=== PATIENT | female | born 1945 | race Caucasian/White ===

== ENCOUNTER → 2025-06-17 | Day surgery (SDC) | payer MEDICARE ==
[~2025-06-17] MED LIST: ALENDRONATE SOD70 MG PO; DOXAZOSIN MESYLA2 MG PO; EPHEDRINE SULFATE INJ 50 MG/ML VIAL ONE; ESTRADIOL1 MG PO; EYE LUBRICANT OPTH OINT 3.5GM TUBE OP ONE; FENTANYL CITRATE/PF 100MCG/2 ML INJ ONE; FINASTERIDE5 MG PO; HYDROCHLOROTHIA25 MG PO; KETAMINE HCL INJ 50 MG/ML 10 ML VIAL ONE; LIDOCAINE HCL 2% LOCAL INJ 5 ML SDV VIAL INJ ONE; PHENYLEPHRINE HCL 1% 10 MG/ML VIAL ONE; PROPOFOL IV EMULSION 10 MG/ML 20 ML VIAL ONE; PROPOFOL IV EMULSION 50 ML IV ONE; SIMVASTATIN20 MG PO; SODIUM CHLORIDE 0.9% INJ 10 ML VIAL ONE; SYNTHROID50 MCG PO; TRAZODONE HCL100 MG PO; VESICARE5 MG PO
[2025-06-17] MEDS: LACTATED RINGER'S 1,000 ML ONE (11:26)
[2025-06-17] MEDS: GENTAMICIN 80MG/NS 100 ML 200 ML IV ONE (11:26)
[2025-06-17 11:30] LABS: BASOPHILS % 0.6 % (0.0-1.0); EOSINOPHILS % 1.5 % (0.0-6.0); LYMPHOCYTES % 37.0 % (18.0-39.1); MONOCYTES % 9.2 % (4.4-11.3); NEUTROPHILS % 51.4 % (38.7-80.0); RED CELL DISTRIBUTION WIDTH 12.3 % (11.7-14.4)
[2025-06-17 11:56] LABS: EST GLOMERULAR FILTRATION RATE 54.0 ML/MIN (>=60)
[2025-06-17 15:15] VITALS: BP 132/64; PULSE 89; RESP 15; O2SAT 99
== END | disposition home or self-care (01) ==
LOC: OR 10:29
PROVIDERS: ATTEND Urology
DX: N39.41 Urge incontinence (principal); R35.0 Frequency of micturition; R35.1 Nocturia; I10 Essential (primary) hypertension; E78.5 Hyperlipidemia, unspecified; E03.9 Hypothyroidism, unspecified; M81.0 Age-related osteoporosis without current pathological fracture; Z88.6 Allergy status to analgesic agent; Z88.1 Allergy status to other antibiotic agents; Z88.0 Allergy status to penicillin; Z79.899 Other long term (current) drug therapy
CPT/HCPCS: 36415; 64581; 64590; 74420; 80048; 85025; 93005; 95972; C1767; C1778; J1580; J2003; J2371; J2704 ×2; J3010; J7121